=== PATIENT | female | born 1965 | race Asian ===

== ENCOUNTER 2018-05-31 09:50 | Day surgery (SDC) | payer OTHER ==
[~2018-05-31] VITALS: Ht 162.6 cm; Wt 65.2 kg
[2018-05-31 10:16] VITALS: BP 138/75; PULSE 63; TEMP 97.9
[2018-05-31] MEDS ORDERED: SYNTHROID0.088 MG/T PO (10:21)
[2018-05-31 12:14] VITALS: BP 114/75; PULSE 62; TEMP 97.9
[2018-05-31 12:30] VITALS: BP 110/73; PULSE 56
[2018-05-31 12:45] VITALS: BP 121/82; PULSE 55
[2018-05-31 13:00] VITALS: BP 127/75; PULSE 56
== END 2018-05-31 13:12 | disposition home or self-care (01) ==
LOC: SDCO 09:50
DX: K21.9 Gastro-esophageal reflux disease without esophagitis (principal); R10.13 Epigastric pain; R19.7 Diarrhea, unspecified
CPT/HCPCS: J2250; J2405; J3010; J7030